=== PATIENT | female | born 1975 | race Caucasian/White ===

== ENCOUNTER 2017-05-04 18:38 | Emergency (ER) | END 2017-05-04 23:48 | disposition home or self-care (01) ==

== ENCOUNTER 2018-04-15 01:56 | Emergency (ER) | payer MEDICAID ==
[~2018-04-15] VITALS: Ht 152.4 cm; Wt 50.6 kg
[~2018-04-15 01:56] MED LIST: CLOT45CR6 VAG; HYDR-4011 PO; MAG-19 PO; OMEP20CA16 PO; RANI150T35 PO; SULF1TAB31 PO; TYL500 PO
[2018-04-15 02:05] VITALS: Ht 152.4 cm; Wt 50.6 kg
[2018-04-15] MEDS ORDERED: ONDANSETRON 4 MG INJ IV STA (02:30)
[2018-04-15] MEDS ORDERED: KETOROLAC 30 MG INJ IV STA (02:30)
[2018-04-15] MEDS ORDERED: SOD CHLORIDE 0.9% 1,000 ML IV STA (02:30)
[2018-04-15] MEDS ORDERED: morphine 4 MG/ML VIAL IV STA (02:30)
--- NOTE | 2018-04-15 04:19 | ERD ---
ER Documentation Chief Complaint Chief Complaint abdominal/back pain x 3 days worse today HPI This is a very pleasant 42-year-old female with abdominal pain and back pain for 3 days. Pain is mild to moderate intensity with no exacerbating alleviating factors. Denies any fevers or chills. Denies any other current complaints. Patient says the pain starts in her right lower quadrant and radiates to her flank region. Denies dysuria denies urgency or frequency of urination ROS All systems reviewed and are negative except as per history of present illness. Medications Home Meds Active Scripts Hydrocodone/Acetaminophen ([place] 5-325 Tablet) 1 Each Tablet, 1 TAB PO Q6H PRN for PAIN, #7 TAB Prov:NANNETTE ENAMORADO MD 05/04/17 Magaldrate/Simethicone* (Mylanta*) 355 Ml Susp, 30 ML PO QID PRN for GASTROINTESTINAL UPSET, #1 BOTTLE Prov:NANNETTE ENAMORADO MD 05/04/17 Ranitidine Hcl* (Zantac*) 150 Mg Tablet, 150 MG PO BID PRN for EPIGASTRIC PAIN, #60 TAB Prov:NANNETTE ENAMORADO MD 05/04/17 Ranitidine Hcl* (Zantac*) 150 Mg Tablet, 150 MG PO BID PRN for EPIGASTRIC PAIN, #30 TAB Prov:QUEENIE NOE DO 12/05/16 Reported Medications Sulfamethoxazole/Trimethoprim* (Bactrim Ds* Tablet) 1 Each Tablet, 1 TAB PO BID, TAB TAKE FOR 3 DAYS START DATE 12/04/16 12/05/16 Omeprazole* (Omeprazole*) 20 Mg Capsule.dr, 20 MG PO DAILY, #30 CAP 12/05/16 Acetaminophen* (Tylenol*) 500 Mg Tab, 500 MG PO DAILY PRN for MILD PAIN LEVEL 1- 3, TAB 12/05/16 Clotrimazole (Clotrimazole) Vaginal Cream..g., 1 APPLIC VAG HS, EA FOR 7 DAYS START DATE 12/04/16 12/05/16 Allergies Allergies: Coded Allergies: No Known Drug Allergy (Verified Allergy, Unknown, 04/15/18) PMhx/Soc History of Surgery: Yes (STERILIZATION, breast augmentation mar) Anesthesia Reaction: No Hx Neurological Disorder: No Hx Respiratory Disorders: No Hx Cardiac Disorders: No Hx Psychiatric Problems: No Hx Miscellaneous Medical Probl: Yes (GERD) Hx Alcohol Use: No Hx Substance Use: No Hx Tobacco Use: No Smoking Status: Unknown if ever smoked Physical Exam Vitals Vital Signs Date Temp Pulse Resp B/P (MAP) Pulse Ox O2 O2 Flow FiO2 Time Delivery Rate 04/15/18 98.0 72 16 103/74 100 Room Air 02:40 (84) 04/15/18 97.5 79 18 108/68 100 02:05 (81) Physical Exam Const: No acute distress Head: Atraumatic Eyes: Normal Conjunctiva ENT: Normal External Ears, Nose and Mouth. Neck: Full range of motion. No meningismus. Resp: Clear to auscultation bilaterally Cardio: Regular rate and rhythm, no murmurs Abd: Soft, non tender, non distended. Normal bowel sounds Skin: No petechiae or rashes Back: No midline or flank tenderness Ext: No cyanosis, or edema Neur: Awake and alert Psych: Normal Mood and Affect Result Diagram: 04/15/18 0244 04/15/18 0244 Results 24 hrs Laboratory Tests Test 04/15/18 02:44 04/15/18 02:53 White Blood Count 7.9 10^3/ul Red Blood Count 4.51 10^6/ul Hemoglobin 13.5 g/dl Hematocrit 40.5 % Mean Corpuscular Volume 89.8 fl Mean Corpuscular Hemoglobin 29.9 pg Mean Corpuscular Hemoglobin Concent 33.3 g/dl Red Cell Distribution Width 11.9 % Platelet Count 212 10^3/UL Mean Platelet Volume 10.7 fl Immature Granulocytes % 0.500 % Neutrophils % 56.0 % Lymphocytes % 33.5 % Monocytes % 6.3 % Eosinophils % 3.2 % Basophils % 0.5 % Nucleated Red Blood Cells % 0.0 /100WBC Immature Granulocytes # 0.040 10^3/ul Neutrophils # 4.4 10^3/ul Lymphocytes # 2.7 10^3/ul Monocytes # 0.5 10^3/ul Eosinophils # 0.3 10^3/ul Basophils # 0.0 10^3/ul Nucleated Red Blood Cells # 0.0 10^3/ul Urine Color YELLOW Urine Clarity CLOUDY Urine pH 7.0 Urine Specific [place] 1.021 Urine Ketones NEGATIVE mg/dL Urine Nitrite NEGATIVE mg/dL Urine Bilirubin NEGATIVE mg/dL Urine Urobilinogen NEGATIVE mg/dL Urine Leukocyte Esterase NEGATIVE Martha/ul Urine Microscopic RBC 16 /HPF Urine Microscopic WBC 0 /HPF Urine Squamous Epithelial Cells FEW /HPF Urine Amorphous Crystals FEW /HPF Urine Bacteria FEW /HPF Urine Hemoglobin 2+ mg/dL Urine Glucose NEGATIVE mg/dL Urine Total Protein NEGATIVE mg/dl Sodium Level 143 mmol/L Potassium Level 3.9 mmol/L Chloride Level 106 mmol/L Carbon Dioxide Level 27 mmol/L Anion Gap 10 Blood Urea Nitrogen 24 mg/dl Creatinine 0.58 mg/dl Est Glomerular Filtrat Rate mL/min > 60 mL/min Glucose Level 96 mg/dl Calcium Level 9.3 mg/dl Total Bilirubin 0.3 mg/dl Direct Bilirubin 0.00 mg/dl Indirect Bilirubin 0.3 mg/dl Aspartate Amino Transf (AST/SGOT) 19 IU/L Alanine Aminotransferase (ALT/SGPT) 22 IU/L Alkaline Phosphatase 74 IU/L Total Protein 6.8 g/dl Albumin 4.0 g/dl Globulin 2.80 g/dl Albumin/Globulin Ratio 1.42 Lipase 118 U/L POC Beta HCG, Qualitative NEGATIVE Current Medications Medications Dose Sig/[place] Start Time Status Last (Trade) Ordered Route PRN Stop Time Admin Dose Reason Admin Sodium 1,000 ml @ Q1H STAT 04/15/18 DC 04/15/18 Chloride 1,000 mls/hr IV 02:30 02:43 04/15/18 03:29 Morphine 4 mg ONCE STAT 04/15/18 DC 04/15/18 Sulfate IV 02:30 02:43 (morphine) 04/15/18 02:31 Ondansetron 4 mg ONCE STAT 04/15/18 DC 04/15/18 HCl (Zofran IV 02:30 02:43 Inj) 04/15/18 02:31 Ketorolac 30 mg ONCE STAT 04/15/18 DC 04/15/18 Tromethamine IV 02:30 02:57 (Toradol) 04/15/18 02:31 Procedures/MDM Emergency department course: Patient seen and evaluated triage was placed in bed from the evaluation. Had blood work done. A stat CT scan. Given pain medication. Medical decision making: This is a very pleasant patient comes in with abdominal pain. Patient's gastrointestinal symptoms have stabilized while in the department. No evidence of severe dehydration, sepsis, or surgical abdomen. Extensive discussion with family and patient that occult disease cannot be ruled out. 8 hour recheck for repeat abdominal exam is planned. Departure Diagnosis: Primary Impression: Abdominal pain Abdominal location: unspecified location Qualified Codes: R10.9 - Unspecified abdominal pain Condition: Stable VANESSA SILVA Apr 15, 2018 04:19
[2018-04-15] MEDS ORDERED: DOCU-144 PO (04:27)
[2018-04-15] MEDS ORDERED: TRAM50TA2 PO (04:27)
[2018-04-15 04:50] VITALS: BP 98/61; PULSE 74; RESP 17
== END 2018-04-15 04:50 | disposition home or self-care (01) ==
LOC: E/R 01:56
DX: R10.31 Right lower quadrant pain (principal)
CPT/HCPCS: 36415; 74176; 80053; 81001; 81025; 83690; 85025; 87086; 96361; 96374; 96375; J1885; J2270; J2405; J7030; Z7502